=== PATIENT | male | born 1990 | race Caucasian/White ===

== ENCOUNTER 2017-07-10 11:06 | Emergency (ER) | payer OTHER ==
[~2017-07-10] VITALS: Ht 188 cm; Wt 120.2 kg
[~2017-07-10 11:06] MED LIST: Percocet 5-3251 EACH PO
[2017-07-10] MEDS ORDERED: Ultram50 MG PO (13:31)
[2017-07-10] MEDS ORDERED: Crutch1 EACH MISC (13:46)
== END 2017-07-10 13:45 | disposition home or self-care (01) ==
LOC: ER 11:06
DX: S82.402K Unspecified fracture of shaft of left fibula, subsequent encounter for closed fracture with nonunion (principal); W01.0XXA Fall on same level from slipping, tripping and stumbling without subsequent striking against object, initial encounter
CPT/HCPCS: 29515; 73590; 99283